=== PATIENT | female | born 1965 | race Caucasian/White ===

== ENCOUNTER → 2022-02-22 | Outpatient (CLI) | payer OTHER ==
[2022-02-23 20:08] LABS: HPV 16 Negative (Negative); HPV 18 Negative (Negative); HPV OTHER HR TYPES Negative (Negative)
== END | disposition home or self-care (01) ==
LOC: LAB 13:07 → LAB SHORT 13:07
PROVIDERS: Physician Assistant
DX: Z01.419 Encounter for gynecological examination (general) (routine) without abnormal findings (principal)
CPT/HCPCS: 87624; 88175

== ENCOUNTER 2023-04-29 22:06 | Emergency (ER) | payer BC ==
[~2023-04-29] VITALS: Ht 157.5 cm; Wt 67.6 kg
[~2023-04-29 22:06] MED LIST: LOSARTAN POTASS25 M2 PO; OMEP20ER PO
[2023-04-29 22:37] LABS: BASOPHILS ABSOLUTE AUTO 0.04 K/mm3 (0.00-0.23); BASOPHILS PERCENT AUTO 1 % (0-2); EOSINOPHILS ABSOLUTE AUTO 0.09 K/mm3 (0.00-0.68); EOSINOPHILS PERCENT AUTO 1 % (0-6); Hematocrit 37.8 % (33.0-51.0); Hemoglobin 12.9 g/dL (11.5-16.0); IMMATURE GRAN ABSOLUTE AUTO 0.01 K/mm3 (0.00-0.10); IMMATURE GRAN PERCENT AUTO 0 % (0-1); LYMPHOCYTES ABSOLUTE AUTO 3.85 K/mm3 (0.84-5.20); LYMPHOCYTES PERCENT AUTO 53 % (21-46); MONOCYTES ABSOLUTE AUTO 0.78 K/mm3 (0.16-1.47); MONOCYTES PERCENT AUTO 11 % (4-13); Mean Corpuscular HGB 30.4 pg (26.0-34.0); Mean Corpuscular HGB Conc 34.1 g/dL (31.5-36.5); Mean Corpuscular Volume 89 fL (80-100); Mean Platelet Volume 9.1 fL (9.1-12.4); NEUTROPHILS PERCENT AUTO 34 % (41-73); Platelet Count 386 K/mm3 (150-400); RDW Coefficient Variation 12.6 % (11.7-14.2); RDW Standard Deviation 41.3 fL (35.1-46.3); Red Blood Cell Count 4.25 M/mm3 (3.80-5.20); White Blood Cell Count 7.27 K/mm3 (4.00-11.30)
[2023-04-29 23:09] LABS: Albumin, Blood 3.9 g/dL (3.4-5.0); Albumin/Globulin Ratio 1.1 (0.8-1.8); Bilirubin, Total 0.2 mg/dL (0.1-1.0); Bun/Creatinine Ratio 20.6 (12.0-20.0); Calcium, Blood 9.3 mg/dL (8.5-10.1); Creatinine, Blood 0.97 mg/dL (0.40-1.00); Globulin, Blood 3.6 g/dL (2.2-4.0); Potassium, Blood 3.6 mmol/L (3.5-5.5); Total Protein, Blood 7.5 g/dL (6.4-8.2)
[2023-04-30 00:45] VITALS: BP 110/64
[2023-04-30] MEDS ORDERED: ALMACONE SUSPE355 ML PO (00:59)
[2023-04-30] MEDS ORDERED: PANT40 PO (00:59)
== END 2023-04-30 01:11 | disposition home or self-care (01) ==
LOC: ER 22:06
PROVIDERS: Physician Assistant
DX: R10.13 Epigastric pain (principal); I10 Essential (primary) hypertension; Z88.5 Allergy status to narcotic agent; Z79.899 Other long term (current) drug therapy; Z87.891 Personal history of nicotine dependence
CPT/HCPCS: 71046; 80053; 84484; 85025; 93005; 93010; 96374; 99284-25; A9270

== ENCOUNTER → 2023-05-25 | Outpatient (CLI) | payer BC ==
[~2023-05-25] MED LIST changes: +ALMACONE SUSPE355 ML PO; +PANT40 PO
== END | disposition home or self-care (01) ==
LOC: LAB SHORT 16:19 → LAB 16:19
DX: R25.2 Cramp and spasm (principal)
CPT/HCPCS: 83735

== ENCOUNTER 2024-09-13 08:30 | Inpatient (IN) | payer OTHER ==
[~2024-09-13] VITALS: Ht 157.5 cm; Wt 81.1 kg
[2024-09-13] MEDS ORDERED: Ativan1 MG PO ×2 (09:06→09:07)
[2024-09-13] MEDS ORDERED: OLMESARTAN MEDO40 MG PO (09:07)
[2024-09-13] MEDS ORDERED: Ondansetron HCl 2 MG / ML 2ML Vial IV ONE (09:10)
[2024-09-13] MEDS ORDERED: Lactated Ringer's 1,000 ML IV SCH ×4 (09:15→16:00)
[2024-09-13 09:42] LABS: Source, Urine Clean Catch
[2024-09-13 09:46] LABS: BASOPHILS ABSOLUTE AUTO 0.04 K/mm3 (0.00-0.23); BASOPHILS PERCENT AUTO 0 % (0-2); EOSINOPHILS ABSOLUTE AUTO 0.01 K/mm3 (0.00-0.68); EOSINOPHILS PERCENT AUTO 0 % (0-6); Hematocrit 36.3 % (33.0-51.0); Hemoglobin 12.4 g/dL (11.5-16.0); IMMATURE GRAN ABSOLUTE AUTO 0.06 K/mm3 (0.00-0.10); IMMATURE GRAN PERCENT AUTO 0 % (0-1); LYMPHOCYTES ABSOLUTE AUTO 0.64 K/mm3 (0.84-5.20); LYMPHOCYTES PERCENT AUTO 4 % (21-46); MONOCYTES PERCENT AUTO 4 % (4-13); Mean Corpuscular HGB 29.9 pg (26.0-34.0); Mean Corpuscular HGB Conc 34.2 g/dL (31.5-36.5); Mean Corpuscular Volume 88 fL (80-100); Mean Platelet Volume 9.5 fL (9.1-12.4); NEUTROPHILS ABSOLUTE AUTO 15.71 K/mm3 (1.96-9.15); NEUTROPHILS PERCENT AUTO 92 % (41-73); Platelet Count 288 K/mm3 (150-400); RDW Coefficient Variation 12.4 % (11.7-14.2); Red Blood Cell Count 4.15 M/mm3 (3.80-5.20); White Blood Cell Count 17.16 K/mm3 (4.00-11.30)
[2024-09-13 09:46] LABS: Appearance, Urine Clear (Clear); Bilirubin, Urine Neg (Neg); Blood, Urine 2+ (Neg); Color, Urine Yellow (P-Yellow); Glucose Qualitative, Urine Neg (Neg); Ketones, Urine Neg (Neg); Leukocyte Esterase, Urine Neg (Neg); Nitrite, Urine Neg (Neg); Protein, Urine Neg (Neg); Specific Gravity, Urine 1.015 (1.003-1.022); Urobilinogen, Urine NORM (Normal)
[2024-09-13 10:00] LABS: Bacteria Not Seen /hpf; Squamous Epithelial Cells Few /hpf (Few); White Blood Cells, Urine 0-2 /hpf (0-5)
[2024-09-13 10:17] LABS: Albumin/Globulin Ratio 1.1 (0.8-1.8); Bilirubin, Total 0.3 mg/dL (0.1-1.0); Bun/Creatinine Ratio 19.1 (12.0-20.0); Creatinine, Blood 0.58 mg/dL (0.40-1.00); Globulin, Blood 3.5 g/dL (2.2-4.0); Potassium, Blood 3.6 mmol/L (3.5-5.5); Total Protein, Blood 7.5 g/dL (6.4-8.2)
[2024-09-13] MEDS ORDERED: Azithromycin 500 MG in NS 250 ML IV ONE (10:35)
[2024-09-13] MEDS ORDERED: CefTRIAXone Sodium 1,000 MG in NS 100 ML IV ONE ×2 (10:40→12:55)
[2024-09-13 12:23] LABS: Influenza A, PCR NEGATIVE (NEGATIVE); Influenza B, PCR NEGATIVE (NEGATIVE); Resp Syncytial Virus, PCR NEGATIVE (NEGATIVE); SARS-Cov-2 (COVID-19) PCR, MMC NEGATIVE (NEGATIVE)
[2024-09-13] MEDS ORDERED: Prochlorperazine Edisylate 10 mg Vial IV PRN (12:45)
[2024-09-13] MEDS ORDERED: Calcium Carbonate 500 MG Tab Chew PO PRN (12:50)
[2024-09-13] MEDS ORDERED: Zolpidem Tartrate 5 MG Tab PO PRN (12:50)
[2024-09-13] MEDS ORDERED: Lactated Ringer's 1,000 ML IV ONE (13:37)
[2024-09-13] MEDS ORDERED: LORazepam 1 MG Tab PO PRN (14:00)
[2024-09-13] MEDS ORDERED: Acetaminophen 325 MG TABLET PO PRN (14:15)
[2024-09-13 15:48] VITALS: BP 122/63
[2024-09-13 19:05] VITALS: BP 123/60
[2024-09-13] MEDS ORDERED: Docusate Sodium 100 MG Cap PO SCH (21:00)
[2024-09-14 04:18] VITALS: BP 147/72
[2024-09-14 04:51] LABS: BASOPHILS ABSOLUTE AUTO 0.05 K/mm3 (0.00-0.23); BASOPHILS PERCENT AUTO 0 % (0-2); EOSINOPHILS ABSOLUTE AUTO 0.03 K/mm3 (0.00-0.68); EOSINOPHILS PERCENT AUTO 0 % (0-6); Hematocrit 31.8 % (33.0-51.0); Hemoglobin 10.7 g/dL (11.5-16.0); IMMATURE GRAN PERCENT AUTO 1 % (0-1); LYMPHOCYTES PERCENT AUTO 12 % (21-46); MONOCYTES ABSOLUTE AUTO 1.38 K/mm3 (0.16-1.47); MONOCYTES PERCENT AUTO 7 % (4-13); Mean Corpuscular HGB 29.8 pg (26.0-34.0); Mean Corpuscular HGB Conc 33.6 g/dL (31.5-36.5); Mean Corpuscular Volume 89 fL (80-100); Mean Platelet Volume 9.5 fL (9.1-12.4); NEUTROPHILS ABSOLUTE AUTO 16.61 K/mm3 (1.96-9.15); NEUTROPHILS PERCENT AUTO 81 % (41-73); Platelet Count 244 K/mm3 (150-400); RDW Coefficient Variation 12.8 % (11.7-14.2); RDW Standard Deviation 41.4 fL (35.1-46.3); Red Blood Cell Count 3.59 M/mm3 (3.80-5.20); White Blood Cell Count 20.57 K/mm3 (4.00-11.30)
[2024-09-14 05:16] LABS: Bun/Creatinine Ratio 14.2 (12.0-20.0); Calcium, Blood 8.6 mg/dL (8.5-10.1); Creatinine, Blood 0.63 mg/dL (0.40-1.00); Potassium, Blood 3.5 mmol/L (3.5-5.5)
--- NOTE | 2024-09-14 05:24 | NUR ---
SHIFT SUMMARY REPORT. PATIENT ALERT AND OREINTED X4, SHE IS ON BIPAP,FLUID OVERLOAD,HAS BEEN EXPRIENCING JERKING MOVEMENT ,BED PISANO .DALE IN SITU,ALL HER DUE MEDICATION WERE SERVED CALL LIGHT ANSWERED PROMPTLY. SHE SLEPT WELL LAST NIGHT THOUGH STILL STRUGGLE WITH DIFFICUT BREATHING WITHOUT BIPAP.
[2024-09-14 07:29] VITALS: BP 118/54
[2024-09-14] MEDS ORDERED: Losartan Potassium 50 MG Tab PO SCH (09:00)
[2024-09-14] MEDS ORDERED: NS 250 ML IV PRN (10:10)
[2024-09-14] MEDS ORDERED: Azithromycin 250 MG Tab PO SCH (12:00)
[2024-09-14] MEDS ORDERED: CefTRIAXone Sodium 2,000 MG in NS 100 ML IV SCH (12:00)
[2024-09-14] MEDS ORDERED: HYDROmorphone HCl 2 MG Tab PO PRN (15:05)
[2024-09-14 16:55] VITALS: BP 139/69
--- NOTE | 2024-09-14 18:26 | NUR ---
SHIFT SUMMARY- PT ALERT AND ORIENTED, INDEPENDENT IN THE ROOM. IVF DC'D, IV AND PO ABX ORDERED. PT BIGGEST COMPLAINT ALL SHIFT HAS REMAINED A MODERATE TO SEVERE HEADACHE. TREATING WITH Q4 TYLENOL WAS INEFFECTIVE. SPOKE TO DR ANDRADE AND RECIEVED AN ORDER FOR PO DILAUDID Q4P WITH A MAX OF 4 DOSES. LATER ORDERED A HEAD CT, THE PT WENT TO IMAGING AND HAD THAT COMPLETED. NO RESULT YET. PT IS CURRENTLY LAYING IN BED, CALL LIGHT IN REACH NPO S&S OF DISTRESS NOTED. WILL PASS ON TO NIGHT RN IN REPORT
--- NOTE | 2024-09-15 04:02 | NUR ---
SHIFT SUMMARY PATIENT REPORTED BUTT X TWO AND TYLENOL 650 MG GIVEN FIRST EVENT AND PO DILAUDID 2 MG SECOND EVENT. ALERT ORIENTED AND INDEPENDENT IN ROOM. DENIES CHEST PAIN, SOB, AND N/V. VSS/AFEBRILE. PIV INTACT. CALL LIGHT IN REACH. BED IN LOWEST POSITION. WILL CONTINUE TO MONITOR UNTIL DAY SHIFT NURSE ASSUMES CARE.
[2024-09-15 04:15] VITALS: BP 134/69
[2024-09-15 06:04] LABS: BASOPHILS ABSOLUTE AUTO 0.03 K/mm3 (0.00-0.23); BASOPHILS PERCENT AUTO 0 % (0-2); EOSINOPHILS ABSOLUTE AUTO 0.16 K/mm3 (0.00-0.68); EOSINOPHILS PERCENT AUTO 1 % (0-6); Hematocrit 31.8 % (33.0-51.0); Hemoglobin 10.6 g/dL (11.5-16.0); IMMATURE GRAN ABSOLUTE AUTO 0.05 K/mm3 (0.00-0.10); IMMATURE GRAN PERCENT AUTO 0 % (0-1); LYMPHOCYTES ABSOLUTE AUTO 1.91 K/mm3 (0.84-5.20); LYMPHOCYTES PERCENT AUTO 16 % (21-46); MONOCYTES ABSOLUTE AUTO 1.01 K/mm3 (0.16-1.47); MONOCYTES PERCENT AUTO 9 % (4-13); Mean Corpuscular HGB 29.9 pg (26.0-34.0); Mean Corpuscular HGB Conc 33.3 g/dL (31.5-36.5); Mean Corpuscular Volume 90 fL (80-100); Mean Platelet Volume 9.9 fL (9.1-12.4); NEUTROPHILS ABSOLUTE AUTO 8.46 K/mm3 (1.96-9.15); NEUTROPHILS PERCENT AUTO 73 % (41-73); Platelet Count 238 K/mm3 (150-400); RDW Standard Deviation 42.6 fL (35.1-46.3); Red Blood Cell Count 3.55 M/mm3 (3.80-5.20); White Blood Cell Count 11.62 K/mm3 (4.00-11.30)
[2024-09-15 07:30] VITALS: BP 114/58
[2024-09-15 14:07] LABS: Percent Saturation 11.6 % (15.0-50.0)
[2024-09-15 16:08] VITALS: BP 140/78
--- NOTE | 2024-09-15 18:18 | NUR ---
SHIFT SUMMARY PT A&OX4, VSS, AMB IND, TOLERATING PO, VOIDING, AND PAIN MANAGED PER EMAR. PT CONT TO C/O 7-9/10 H/A PAIN. IV ABX GIVEN PER ORDER. NO OTHER ACUTE CHANGES. CALL LIGHT WITHIN REACH AND PT ABLE TO MAKE NEEDS KNOWN.
[2024-09-15 19:21] VITALS: BP 136/71
[2024-09-16 04:20] VITALS: BP 146/71
--- NOTE | 2024-09-16 04:57 | NUR ---
SUMMARY: PT A/OX4, CALLS APPROPRIATELY TO SPECIFY NEEDS AND IS PLEASANT AND COOPERATIVE W/CARE. SHE'S INDEPENDENT IN ROOM AND AWARE OF LIMITATIONS. BUTT MANAGED W/PRN TYLENOL FOR 11/27 EFFECT, DOWN FROM 02/27. PT RECEIVING ABX FOR PNM AND COARSE LS AUSCULTATED TO L.LOBE. SHE REMAINS ON RA W/SPO2 WNL AND IS W/O S/S RESP DISTRESS. NO ACUTE CHANGES, VSS/AFEBRILE. WILL REPORT TO DAY RN.
[2024-09-16 05:42] LABS: BASOPHILS ABSOLUTE AUTO 0.01 K/mm3 (0.00-0.23); BASOPHILS PERCENT AUTO 0 % (0-2); EOSINOPHILS PERCENT AUTO 5 % (0-6); Hematocrit 31.5 % (33.0-51.0); Hemoglobin 10.6 g/dL (11.5-16.0); IMMATURE GRAN ABSOLUTE AUTO 0.01 K/mm3 (0.00-0.10); IMMATURE GRAN PERCENT AUTO 0 % (0-1); LYMPHOCYTES ABSOLUTE AUTO 1.32 K/mm3 (0.84-5.20); LYMPHOCYTES PERCENT AUTO 33 % (21-46); MONOCYTES ABSOLUTE AUTO 0.58 K/mm3 (0.16-1.47); MONOCYTES PERCENT AUTO 14 % (4-13); Mean Corpuscular HGB 30.2 pg (26.0-34.0); Mean Corpuscular HGB Conc 33.7 g/dL (31.5-36.5); Mean Corpuscular Volume 90 fL (80-100); Mean Platelet Volume 9.5 fL (9.1-12.4); NEUTROPHILS PERCENT AUTO 47 % (41-73); Platelet Count 251 K/mm3 (150-400); RDW Coefficient Variation 12.9 % (11.7-14.2); RDW Standard Deviation 42.1 fL (35.1-46.3); Red Blood Cell Count 3.51 M/mm3 (3.80-5.20); White Blood Cell Count 4.02 K/mm3 (4.00-11.30)
[2024-09-16 08:16] VITALS: BP 146/75
[2024-09-16] MEDS ORDERED: Iron Dextran 50 MG / ML 2ML Vial IV SCH (10:00)
[2024-09-16] MEDS ORDERED: Iron Dextran 50 MG / ML 2ML Vial IV ONE (10:00)
[2024-09-16] MEDS ORDERED: Iron Dextran 975 MG in NS 250 ML IV ONE (12:00)
[2024-09-16] MEDS ORDERED: CEFU500T30 PO (13:05)
[2024-09-16] MEDS ORDERED: ACET325 PO (13:05)
--- NOTE | 2024-09-16 14:33 | NUR ---
DISCHARGE NOTE PT D/C HOME AT 1348. PT PROVIDED W/ VERBAL AND WRITTEN INSTRCUTIONS AND REPORTED UNDERSTANDING. PT A&OX4, VSS, AMB IND, TOLERATING PO, VOIDING, AND PAIN MANAGED. IRON GIVEN PER ORDER PRIOR TO D/C. BELONGINGS WERE RETURNED AND PT ESCOURTED OUT IND BY ROOM MATE.
== END 2024-09-16 14:24 | disposition home or self-care (01) | DRG 871 ==
LOC: ER 08:30 → MEDS 12:49
PROVIDERS: Student in an Organized Health Care Education/Training Program; ADMIT Internal Medicine
DX: A41.9 Sepsis, unspecified organism (principal); J18.9 Pneumonia, unspecified organism; J69.0 Pneumonitis due to inhalation of food and vomit; E87.21 Acute metabolic acidosis; R65.20 Severe sepsis without septic shock; K52.9 Noninfective gastroenteritis and colitis, unspecified; I10 Essential (primary) hypertension; F41.9 Anxiety disorder, unspecified; R51.9 Headache, unspecified; K21.9 Gastro-esophageal reflux disease without esophagitis; F17.290 Nicotine dependence, other tobacco product, uncomplicated; Z85.3 Personal history of malignant neoplasm of breast; Z88.5 Allergy status to narcotic agent
CPT/HCPCS: 0241U; 36415; 70450; 71046; 80048; 80053; 81001; 82728; 83540; 83550; 83605; 84484; 85025; 87040; 93005; 93010; 94762; 96361; 96365; 96367; 96375; 99285-25; A9270; J0456; J0696; J1750; J2405; J7050; J7120